=== PATIENT | male | born 1945 | race Caucasian/White ===

== ENCOUNTER → 2021-01-31 | Day surgery (SDC) | payer OTHER ==
[~2021-01-31] VITALS: Ht 177.8 cm; Wt 100.7 kg
[~2021-01-31] MED LIST: ALENDRONATE SOD70 MG PO; BENICAR20 MG PO; FENTANYL1 EACH TOP; FINASTERIDE5 MG PO; FUROSEMIDE 20 M20 M1 PO; GABAPENTIN 100100 MG PO; LIPITOR 40 MG T40 M1 PO; METOPROLOL SUCC25 M1 PO; NIZORAL A-D125 ML TOP; NORCO 10-325 T1 EACH PO; NORVASC5 MG PO; PREDNISONE 10 M10 MG PO; PROTONIX40 M2 PO; PROZAC20 MG PO; TAMSULOSIN HCL0.4 MG PO
--- NOTE | ~2021-01-31 | O ---
[facility] Tami Omalley [facility] [place] [address] OPERATIVE REPORT Name: RITA SANTIAGO Room #: REG [facility] [place] M.R.#: [id number] Admission: 01/31/21 Attend Phys: Rojelio Lester MD Discharge: Date of : 49 Report #: [id number] THIS REPORT FOR: cc: Carlos A Alonzo MD, Herbert M. MD Williams, Carson MD ~ DOC #: [id number] cc: Carlos A Alonzo MD, Dr. Rolando Lester MD DATE OF SERVICE: 01/31/2021 PREOPERATIVE DIAGNOSES: 1. Basal cell carcinoma of the scalp. 2. Mohs full-thickness defect scalp, 9 x 9 cm. POSTOPERATIVE DIAGNOSES: 1. Basal cell carcinoma of the scalp. 2. Mohs full-thickness defect scalp, 9 x 9 cm. PROCEDURES PERFORMED: 1. Adjacent tissue transfer, scalp 10-30 square cm, 13575. 2. Adjacent tissue transfer, scalp more than 60 square cm, 63662. 3. Wound bed preparation, [address]. 4. Intermediate wound closure 55 cm in length. PRIMARY SURGEON: Rojelio Lester MD COMBAT RIFLE CREWMEMBER: None. COMPLICATIONS: None. ANESTHESIA: General endotracheal. SPECIMENS: None. INDICATIONS FOR THE PROCEDURE: The patient is a 75-year-old male with an approximate 2-year history of a vertex scalp lesion that had been slowly growing and getting bigger. Biopsy by a general machined parts quality inspector revealed this to be invasive basal cell carcinoma of nodular and infiltrative type. He was then referred to Dr. Rolando Last for Mohs micrographic excision, which was performed on 01/29/2021, which resulted in a very large, approximately 9 x 9 cm full-thickness defect; however, this was periosteal sparing. He was referred to me for formal reconstruction. A discussion was had in the office and he agreed to the procedures as listed above and signed consent. [address] [address] OPERATIVE REPORT Name: RITA SANTIAGO Rupert [id number] Admission: 01/31/21 Attend Phys: Rojelio Lester MD Discharge: Date of : 49 Report #: [id number] DESCRIPTION OF PROCEDURE: The patient was identified in the preoperative area before being transported to the operating room and placed prone on the operating table after induction of general endotracheal anesthesia. At this point, a timeout was called to ensure patient identity and procedure to be performed. Next, the scalp hair was shaved with a shaver followed by skin markings and a 3 limb pinwheel flap design utilizing mostly the posterior occipital scalp and lateral parietal scalps for additional skin mobility. These were then injected with 1% lidocaine 1:100,000 epinephrine solution for a total of 20 mL. At this point, the patient was prepped and draped in the normal sterile fashion. Starting first, the wound bed was thoroughly debrided of old tissues and coagulated blood before raising subgaleal flaps very widely peripherally. Of note, posteriorly, I went supramuscular to allow for additional skin extensibility. Each arm of the pinwheel flap was approximately 15-20 cm in length along its arc. Skin edges were bipolar cautery to achieve hemostasis and after elevation of the 3 limbs of the pinwheel flap in the subgaleal plane, these were then rotated in a clockwise fashion to adequately cover the entire 9 x 9 cm defect. No additional skin back cuts were necessary to achieve adequate closure. At this point, deep interrupted wound closure with 2-0 Vicryl sutures was placed through the galeal layer and tied. This closely approximated all of the skin edges with minimal amounts of bunching at the area where the arcing limbs rotated maximally. At this point, a final check for hemostasis was performed and there was no considerable bleeding. At this point, I elected to reapproximate the skin edges primarily with skin genevieve. This was started proximally on each limb and worked distally to achieve good skin reapproximation and the least amount of tension on the skin edges. At the intersection of all 3 limbs, I elected to reapproximate the skin with smaller closure techniques, so I utilized a 5-0 nylon suture, placed in a vertical mattress fashion to reapproximate the skin edges at the distal most point of all 3 flaps. At this point, I was very pleased with the functional and cosmetic outcome of the patient's Mohs defect closure. Please note that all instrument, sponge and needle counts were correct x2. The patient was reversed from anesthesia and transported to the PACU in stable condition. DISPOSITION: The patient may be discharged from the PACU to go home after meeting general discharge criteria. He has been given prescriptions for pain medication and antibiotics; he should take those as directed. He should not engage in any strenuous activity or heavy lifting. In regard to wound care, he should clean this area at least 3 times per day and apply plain Vaseline ointment along all incision lines. There will be some oozing and dripping; however, this is to be expected. He should call our office with any concerns. MD DANITZA Woody/LEO/ROGER [address] [address] OPERATIVE REPORT Name: BLAIRFrancaRITA Room #: REG [facility] MR.#: [id number] Admission: 01/31/21 Attend Phys: Rojelio Lester MD Discharge: Date of : 49 Report #: [id number] By: 1151 [id number] Rojelio Lester MD /nt
[2021-01-31 08:53] VITALS: BP 141/60
[2021-01-31 13:31] VITALS: BP 141/60
== END | disposition home or self-care (01) ==
LOC: OR 08:07
PROVIDERS: ATTEND Otolaryngology
DX: C44.41 Basal cell carcinoma of skin of scalp and neck (principal); M95.2 Other acquired deformity of head; I10 Essential (primary) hypertension; E78.5 Hyperlipidemia, unspecified; G47.30 Sleep apnea, unspecified; N28.9 Disorder of kidney and ureter, unspecified; K21.9 Gastro-esophageal reflux disease without esophagitis; Z85.828 Personal history of other malignant neoplasm of skin; Z98.890 Other specified postprocedural states; Z79.899 Other long term (current) drug therapy; Z79.01 Long term (current) use of anticoagulants; Z87.442 Personal history of urinary calculi
CPT/HCPCS: 50010; 50101; 50386; 50398; 51412; 56526; 56527; 56528; 57006; 62110; 62900; 65020; 70005

== ENCOUNTER 2021-02-03 21:18 | Inpatient (IN) | payer OTHER ==
[~2021-02-03] VITALS: Ht 177.8 cm; Wt 100.7 kg
[~2021-02-03 21:18] MED LIST changes: -BENICAR20 MG PO; -NIZORAL A-D125 ML TOP
[2021-02-03 21:33] VITALS: BP 139/60
[2021-02-03] MEDS ORDERED: NIZORAL A-D125 ML TOP (21:42)
[2021-02-03 23:08] LABS: ABSOLUTE NEUTROPHILS 5.1 thou/uL (1.4-8.2); BASOPHILS 0.2 % (0.0-2.0); EOSINOPHILS 1.6 % (0.0-3.0); HEMATOCRIT 26.8 % (42.0-52.0); HEMOGLOBIN 8.9 gm/dL (14.0-18.0); LYMPHOCYTES 10.6 % (24.0-44.0); MCH 35.4 pg (26.0-34.0); MCHC 33.3 g/dL (28.0-37.0); MCV 106.4 fL (80.0-100.0); PLATELET COUNT 156 thou/uL (150-400); POLYS 75.6 % (36.0-66.0); RBC 2.51 mil/uL (4.50-6.00); RDW 13.5 % (10.5-14.5); WBC 6.8 thou/uL (4.0-11.0)
[2021-02-03 23:14] LABS: ANION GAP 11 mmol/L (7-16); BUN 20 mg/dL (7-18); CALCIUM 8.8 mg/dL (8.5-10.1); CHLORIDE 99 mmol/L (98-107); CO2 25 mmol/L (21-32); CREATININE 1.3 mg/dL (0.7-1.3); GLUCOSE 95 mg/dL (74-106); POTASSIUM 4.5 mmol/L (3.5-5.1); SODIUM 135 mmol/L (136-145)
[2021-02-03 23:25] LABS: SGOT 30 U/L (15-37); SGPT 30 U/L (16-63); TOTAL BILIRUBIN 0.7 mg/dL (0.2-1.0); TOTAL PROTEIN 6.5 g/dL (6.4-8.2); TROPONIN-I <0.06 ng/mL (<0.06)
[2021-02-04 03:53] VITALS: BP 147/68
--- NOTE | 2021-02-04 04:49 | NUR ---
PT ASSISTED TO BEDSIDE COMMODE WHEN ASSISTED BACK TO BED PT STATING THAT HE CAN NOT FIND HIS RIGHT HEARING AID. WE SEARCHED THE INPT BED, FLOOR, CLOTHING, ALL SURFACES IN THE ROOM, COMMODE. WE WERE UNABLE TO LOCATE THE HEARING AID. NOTIFIED EVS TO LOOK IN [place] FROM ER CART PT WAS ON PRIOR TO BEING PLACED ON INPT BED.
[2021-02-04 05:05] LABS: HEMATOCRIT 26.7 % (42.0-52.0); HEMOGLOBIN 8.9 gm/dL (14.0-18.0); MCH 35.1 pg (26.0-34.0); MCHC 33.2 g/dL (28.0-37.0); MCV 105.7 fL (80.0-100.0); RBC 2.53 mil/uL (4.50-6.00); RDW 13.6 % (10.5-14.5); WBC 7.8 thou/uL (4.0-11.0)
[2021-02-04 05:23] LABS: CALCIUM 8.8 mg/dL (8.5-10.1); CREATININE 1.3 mg/dL (0.7-1.3); POTASSIUM 4.3 mmol/L (3.5-5.1)
[2021-02-04 06:51] VITALS: BP 147/68
--- NOTE | 2021-02-04 07:23 | EKG ---
[address] [address] ELECTROCARDIOGRAM REPORT Name: RITA SANTIAGO Room #: 170-2 ADM IN M.R.#: [id number] Admission: 02/04/21 Attend Phys: Gucci Kang MD Discharge: Date of : 49 Report #: [id number] [facility] ED Test Date: 2021-02-03 Test Time: 23:04:41 Pat Name: RITA SANTIAGO Department: Room: 170 Gender: M Living Nurse: [email or web address] : 1945 Requested By: Radha Preciado Order Number: [id number] MD: Waldo Das Measurements Intervals [place] Rate: 66 P: 59 MN: 148 QRS: -7 QRSD: 99 T: 85 QT: 448 QTc: 470 Interpretive Statements Sinus rhythm Borderline ST depression, lateral leads Baseline wander in lead(s) V4 Compared to ECG 09/28/2014 11:45:18 ST (T wave) deviation now present Atrial fibrillation no longer present Left-axis deviation no longer present Myocardial infarct finding no longer present Electronically Signed On 02-04-2021 7:23:01 CDT by Waldo Das [email or web address] <ELECTRONICALLY SIGNED> By: Waldo Das MD, [facility] 02/04/21 0723 2304 2304 Waldo Das MD, [facility] /EPI
[2021-02-04 09:33] VITALS: BP 133/58
[2021-02-04 09:57] VITALS: BP 149/74
--- NOTE | 2021-02-04 13:01 | EKG ---
[address] [address] ELECTROCARDIOGRAM REPORT Name: RITA SANTIAGO Room #: 358- ADM IN M.R.#: [id number] Admission: 02/04/21 Attend Phys: Gucci Kang MD Discharge: Date of : 49 Report #: [id number] [facility] Test Date: 2021-02-04 Test Time: 11:05:45 Pat Name: RITA SANTIAGO Department: Room: 358 P Gender: M Draw Operator: DON : 1945 Requested By: Gucci Kang Order Number: [id number] MD: Waldo Das Measurements Intervals [place] Rate: 112 P: 69 HI: 157 QRS: -13 QRSD: 104 T: 113 QT: 350 QTc: 478 Interpretive Statements Sinus tachycardia LVH with secondary repolarization abnormality Borderline prolonged QT interval Compared to ECG 02/03/2021 23:04:41 Left ventricular hypertrophy now present Early repolarization now present Sinus rhythm no longer present ST (T wave) deviation no longer present Electronically Signed On 02-04-2021 13:01:19 CDT by Waldo Das [email or web address] <ELECTRONICALLY SIGNED> By: Waldo Das MD, [facility] 02/04/21 1301 1105 1105 Waldo Das MD, [facility] /EPI
--- NOTE | 2021-02-04 14:48 | NUR ---
INITIAL ASSESSMENT: Received consult. SW reviewed chart and spoke with nursing and attending physician. Pt was admitted from home due to hypoxia. Pt is currently on IV steroids and IV abx. Pt on O2. SW met with pt at bedside. Introduced role of SW. Pt is alert/orientated x 4. Pt reports he lives at home with his . Prior to admission, pt was independent with ADLs. No use of DME. No stairs to navigate, per pt. No hx of services or post-acute placement. Pt's PCP is Dr. Carlos A Alonzo. PT/OT ordered to evaluate pt for discharge needs. Plan is for pt to discharge home when medically stable. SW is following to assist as needed with discharge planning.
[2021-02-04 15:21] VITALS: BP 133/68
--- NOTE | 2021-02-04 18:58 | NUR ---
ADMISSION NOTE: PT ALERT AND ORIENTED X4, DENIES ANYH SOB, CHEST PAIN, NAUSEA AND VOMITTING. PT PLACED ON MOBILE SALES CONSULTANT, SR. ASSESMENT AND ADMISSION COMPLETED. SKIN INTACT. FALL PRECAUTIONS IN PLACE. PT SIGNS ALL CONSENTS. DENIES ANY NEEDS AT THE MOMENT.
[2021-02-04 19:40] VITALS: BP 141/69
[2021-02-05 05:52] VITALS: BP 148/74
[2021-02-05 07:57] VITALS: BP 139/73
--- NOTE | 2021-02-05 07:58 | NUR ---
PT IS A/0X4. PT IS WITH SBA TO BATHROOM. PT WENT ON CPAP AND CONTINUOS PULSE OX UNTIL AROUND 0300. PT TOLERATED THE CPAP WELL. FOLLOWING POC FOR PAIN MEDICATION RELATED TO HEAD WOUND. WOUND COVERING IS C/D/I. TELE SHOWS SR. HOURLY ROUNDING.
--- NOTE | 2021-02-05 10:00 | NUR ---
WOUND CONSULT; THE PATIENT HAD SCALP RECONSTRUCTION ON 01/29/21 RE; BASAL CELL CARCINOMA OF THE SCALP. UPWARDS OF 150-[address] WHICH ARE INTACT AND STABLE AT THIS TIME. THE PATIENT HAS AN ABD DRESSING IN PLACE. THERE ARE PICTURES ON THE CHART. I PAINTED THE INSCION SITE WITH A BARRIER SWAB X2 BECAUSE THE PATIENT STATED HE IS ALLERGIC TO BETADINE. THERE IS NO OBVIOUS S/S OF INFECTION. RECOMMENDATION; -KEEP CLEAN AND DRY, COVER WITH A TUBULAR DRESSING FOR THE SURGERY DEPARTMENT. RN PRESENT
--- NOTE | 2021-02-05 13:00 | 2DMMODE ---
[facility] [place] [address] 2 D/M-MODE ECHOCARDIOGRAM Name: RITA SANTIAGO Room #: 358-P ADM IN M.R.#: [id number] Admission: 02/04/21 Attend Phys: Yudi Stone Discharge: Date of : 49 Report #: [id number] THIS REPORT FOR: cc: Carlos A Alonzo MD, Herbert M. MD Lammoglia, Francisco J. MD ~ APPROVED REPORT Study performed: 02/05/2021 11:58:24 EXAM: Comprehensive 2D, Doppler, and color-flow Echocardiogram Patient Location: Bedside Room #: 358 Status: routine BSA: 2.18 HR: 76 bpm BP: 130/80 mmHg Rhythm: NSR Other Information Study Quality: Adequate Indications Congestive Heart Failure Dyspnea Hypertension/HDD 2D Dimensions LVOT Diam: 22.45 (18-24mm) IVC: 30.00 mm Volumes Left Atrial Volume (Systole) Single Plane 4CH: 136.45 mL Single Plane 2CH: 118.26 mL LA ESV Index: 63.00 mL/m2 Aortic Valve AoV Peak Teja.: 3.64 m/s AO Peak Gr.: 52.98 mmHg LVOT Max P.69 mmHg AO Mean Gr.: 29.87 mmHg LVOT Mean P.23 mmHg AO V2 Mean: 2.53 m/s LVOT Max V: 1.71 m/s AO V2 VTI: 81.70 cm LVOT Mean V: 1.23 m/s DALY (VTI): 2.15 cm2 LVOT V1 VTI: 44.30 cm DALY Vmax: 1.86 cm2 [facility] [address] [place] [address] 2 D/M-MODE ECHOCARDIOGRAM Name: RITA SANTIAGO Room #: 358-P [facility] IN ..#: [id number] Admission: 02/04/21 Attend Phys: Yudi Ji Discharge: Date of : 49 Report #: [id number] SV (LVOT): 175.29 mL Mitral Valve MV Peak Gr.: 15.25 mmHg MV Mean Gr.: 8.56 mmHg E/A Ratio: 1.0 MV Decel. Time: 334.97 ms MV E Max Teja.: 1.85 m/s MV A Teja.: 1.82 m/s MV Max Teja.: 1.95 m/s MV Mean Teja.: 1.38 m/s MV VTI: 606.73 mm MVA VTI: 288.91 mm2 MV PHT: 97.14 ms MVA (PHT): 2.09 cm2 IVRT: 73.82 ms Pulmonary Valve PV Peak Teja.: 1.26 m/s PV Peak Gr.: 6.31 mmHg Pulmonary Vein P Vein S: 0.59 m/s P Vein A: 0.33 m/s P Vein D: 0.57 m/s P Vein A Dur.: 110.7 msec P Vein S/D Ratio: 1.04 Tricuspid Valve TR Peak Teja.: 4.02 m/s TR Peak Gr.: 64.55 mmHg PA Pressure: 75.00 mmHg Left Ventricle The left ventricle is normal size. Mild concentric left ventricular hypertrophy. Left ventricular systolic function is hyperdynamic. LVEF is >70%. The left ventricular diastolic function is abnormal. Right Ventricle The right ventricle is normal size. The right ventricular systolic function is normal. Atria Left atrium is dilated. Right atrium is dilated. Aortic Valve The aortic valve is normal in structure. Aortic valve is calcified. Trace aortic regurgitation. Mild aortic stenosis. [facility] [address] [place] [address] 2 D/M-MODE ECHOCARDIOGRAM Name: RITA SANTIAGO Room #: 358-P [facility] IN M.R.#: [id number] Admission: 02/04/21 Attend Phys: Yudi Ji Discharge: Date of : 49 Report #: [id number] Mitral Valve The mitral valve is normal in structure. There is moderate mitral annular calcification. Mild mitral regurgitation. Mild mitral stenosis. Tricuspid Valve The tricuspid valve is normal in structure. There is mild tricuspid regurgitation. Estimated PAP 75 mmHg. There is severe pulmonary hypertension. Pulmonic Valve The pulmonary valve is normal in structure. Trace pulmonic regurgitation. Great Vessels The aortic root is normal in size. IVC is dilated and collapses <50% with inspiration. Pericardium There is no pericardial effusion. <Conclusion> The left ventricle is normal size. Mild concentric left ventricular hypertrophy. LVEF is >70%. The right ventricle is normal size. Left atrium is dilated. Right atrium is dilated. The aortic valve is normal in structure. Aortic valve is calcified. Trace aortic regurgitation. Mild aortic stenosis. The mitral valve is normal in structure. There is moderate mitral annular calcification. Mild mitral regurgitation. Mild mitral stenosis. The tricuspid valve is normal in structure. There is mild tricuspid regurgitation. Estimated PAP 75 mmHg. There is severe pulmonary hypertension. The pulmonary valve is normal in structure. Trace pulmonic regurgitation. [facility] [address] [place] [address] 2 D/M-MODE ECHOCARDIOGRAM Name: RITA SANTIAGO Room #: 358-P [facility] IN .R.#: [id number] Admission: 02/04/21 Attend Phys: Yudi Ji Discharge: Date of : 49 Report #: [id number] The aortic root is normal in size. There is no pericardial effusion. <ELECTRONICALLY SIGNED> By: Dom Cantu MD 02/05/21 1259 1259 1259 Dom Cantu MD /INF
--- NOTE | 2021-02-05 13:44 | NUR ---
SW reviewed chart and spoke with nursing and attending physician. Pt remains on 2L of O2. Pt is on IV abx, IV steroids and IV lasix. Cardiology consulted today due to CHF. Plan is for pt to discharge home when medically stable. ORIANA is following to assist as needed with discharge planning.
--- NOTE | 2021-02-05 19:29 | NUR ---
RN ASSUMED PT'S CARE AT 0700-1900PM, PT IS A&OX4, PT IS CONTINUING IV ABX , PT HAS SOB WITH ACTIVITIES, PT'S HEAD WOUND CARE HAS DONE BY WOUND RN, PT'S VS ARE STABLE AT DAY SHIFT.
[2021-02-05 19:44] VITALS: BP 132/61
[2021-02-06 03:55] VITALS: BP 128/53
[2021-02-06 05:28] LABS: ALBUMIN 2.8 g/dL (3.4-5.0); CALCIUM 8.1 mg/dL (8.5-10.1); CREATININE 1.1 mg/dL (0.7-1.3); PHOSPHORUS 3.7 mg/dL (2.5-4.9); POTASSIUM 4.1 mmol/L (3.5-5.1)
--- NOTE | 2021-02-06 07:57 | NUR ---
OVERNIGHT PT USED HOME CPAP. X1 PO PAIN MEDICATION GIVEN. DISCUSSED WITH PT WHAT ECHO RESULTS WHERE AND WHERE HIS POC IS GOING. PT UP TO BATHROOM SBA. PT STATES HE RESTED GREAT OVERNIGHT.
[2021-02-06 08:29] VITALS: BP 109/47
[2021-02-06 08:36] LABS: FOLIC ACID 41.6 ng/mL (8.6-58.9)
--- NOTE | 2021-02-06 13:27 | NUR ---
SW reviewed chart and spoke with nursing and attending physician. Pt is progressing towards goals for discharge. Discharge home is anticipated for tomorrow. Pt is on IV abx and IV steroids. IV lasix changed to PO today. Plan is for pt to discharge home. ORIANA is following to assist as needed with discharge planning.
[2021-02-06 15:43] VITALS: BP 109/41
--- NOTE | 2021-02-06 18:42 | NUR ---
PATIENT HAS RESTED IN BED THROUGH THE DAY. HE HAS BEEN UP WITH MINIMAL ASSIST TO BATHROOM AND BACK. NO SOB NOTED. WILL CONT WITH PLAN OF CARE.
[2021-02-06 20:10] VITALS: BP 128/58
[2021-02-07 04:27] VITALS: BP 143/67
[2021-02-07 04:53] LABS: ALBUMIN 2.8 g/dL (3.4-5.0); CALCIUM 8.2 mg/dL (8.5-10.1); CREATININE 1.1 mg/dL (0.7-1.3); PHOSPHORUS 3.2 mg/dL (2.6-4.7); POTASSIUM 4.4 mmol/L (3.5-5.1)
--- NOTE | 2021-02-07 06:44 | NUR ---
VSS OVERNIGHT. PT IS READY TO GO HOME HE STATED. PT ON CPAP OVERNIGHT. CALL LIGHT WITHIN REACH.
[2021-02-07 07:08] VITALS: BP 150/79
[2021-02-07] MEDS ORDERED: BENICAR20 MG PO (08:29)
[2021-02-07 09:16] VITALS: BP 150/79
--- NOTE | 2021-02-07 09:16 | NUR ---
WOUND CARE F/U AWAKE, ALERT, COOPERATIVE, HEAD/SCALP MARIJA INTACT, NO DRAINAGE, NO S/S INFECTION, HEALING, STATES AT DC FAMILY/ ABLE TO ASSIST W/ WOUND CARE AND AWARE TO F/U W/ SURGEON NEXT WEEK FOR STAPLE REMOVAL, DRSG SUPPLIES LEFT AT BS, SEE PROCESS INTERVENTION FOR WOUND DETAILS RECOMMENDTIONS; CONT CURRENT POC SENIOR QA ENGINEER AWARE
--- NOTE | 2021-02-07 11:48 | NUR ---
DISCHARGE NOTE: SW reviewed chart and spoke with nursing and attending physician. Pt is medically stable for discharge home today. No discharge needs identified at this time. Pt's family to provide transportation home. Pt is in the BPCI program. SW is available to assist should needs arise.
--- NOTE | 2021-02-07 14:44 | NUR ---
Assumed pt care at 7am.Pt in and out bed independently.Assessment completed. vss.Pt tolerated meds and diet.Dr Coleman and Chase here,dc order noted. Wound care here to see pt regarding genevieve on head.[facility] care package given to pt for home use.Dc summary compile and reviewed with pt.Rx sent to pt pharmacy.At 1430,pt dc home with son in accompanied by this rn.
--- NOTE | 2021-02-07 15:00 | NUR ---
BPCI letter provided in patient chart, patient already discharge home setting where they reside
== END 2021-02-07 14:44 | disposition home or self-care (01) | DRG 291 ==
LOC: ER 21:18 → 3W 02-04 01:09 → EROBS 02-04 01:09 → 3W 02-04 09:35
PROVIDERS: Emergency Medicine; Nurse Practitioner Family; ADMIT Hospitalist; ATTEND Hospitalist
PROC: 5A09357 Assistance with Respiratory Ventilation, Less than 24 Consecutive Hours, Continuous Positive Airway Pressure (ICD-10-PCS; principal; 2021-02-04)
PROC: 5A09357 Assistance with Respiratory Ventilation, Less than 24 Consecutive Hours, Continuous Positive Airway Pressure (ICD-10-PCS; 2021-02-06)
DX: I13.0 Hypertensive heart and chronic kidney disease with heart failure and stage 1 through stage 4 chronic kidney disease, or unspecified chronic kidney disease (principal); J18.9 Pneumonia, unspecified organism; J96.01 Acute respiratory failure with hypoxia; I50.33 Acute on chronic diastolic (congestive) heart failure; I48.91 Unspecified atrial fibrillation; E78.5 Hyperlipidemia, unspecified; K21.9 Gastro-esophageal reflux disease without esophagitis; J20.9 Acute bronchitis, unspecified; N18.9 Chronic kidney disease, unspecified; G47.33 Obstructive sleep apnea (adult) (pediatric); C44.41 Basal cell carcinoma of skin of scalp and neck; M35.3 Polymyalgia rheumatica; N26.1 Atrophy of kidney (terminal); K27.9 Peptic ulcer, site unspecified, unspecified as acute or chronic, without hemorrhage or perforation; R53.81 Other malaise; D53.9 Nutritional anemia, unspecified; N40.0 Benign prostatic hyperplasia without lower urinary tract symptoms; M81.0 Age-related osteoporosis without current pathological fracture; I27.20 Pulmonary hypertension, unspecified; I48.0 Paroxysmal atrial fibrillation; I08.3 Combined rheumatic disorders of mitral, aortic and tricuspid valves; I27.81 Cor pulmonale (chronic); Z79.01 Long term (current) use of anticoagulants; Z87.442 Personal history of urinary calculi; Z89.421 Acquired absence of other right toe(s); Z79.52 Long term (current) use of systemic steroids
CPT/HCPCS: 10879